=== PATIENT | female | born 1990 | race Caucasian/White ===

== ENCOUNTER 2016-10-03 10:04 | Emergency (ER) | payer MEDICAID, OTHER ==
--- NOTE | 2016-10-03 12:29 | ED Physician Documentation ---
PD HPI LOWER EXT INJURY - Stated complaint Stated Complaint: FT PX - Chief complaint Chief Complaint: Ext Problem - History obtained from History obtained from: Patient - History of Present Illness PD HPI LOW EXT INJURY LOCATION: Right, Toe (base of great toe) Type of injury: No: Fall, Twist Timing - onset: Today (awoke with marked pain in great toe MTP. No noted injury. No prior similar. Was feeling otherwise okay.) Improved by: No: Rest Worsened by: Moving, Palpating Associated symptoms: Swelling (at MTP), Discolored (mildly red). No: Weakness, Numbness Similar symptoms before: Has not had sx before Recently seen: Not recently seen Review of Systems Constitutional: denies: Fever, Chills Skin: denies: Abrasion (s), Laceration (s) Musculoskeletal: denies: Back pain Neurologic: denies: Focal weakness, Numbness PD PAST MEDICAL HISTORY - Past Medical History Past Medical History: Yes Neuro: Head injury Musculoskeletal: None - Past Surgical History Past Surgical History: Yes HEENT: Myringotomy (tubes) - Present Medications Home Medications: Ambulatory Orders Medication Instructions Recorded Confirmed Methocarbamol [Robaxin] 500 mg PO Q6H PRN #25 tablet 02/04/16 10/03/16 Dexamethasone [Decadron] 4 mg PO DAILY #5 tablet 10/03/16 Tramadol HCl 50 mg PO Q6H PRN #20 tablet 10/03/16 - Allergies Allergies/Adverse Reactions: Allergies Allergy/AdvReac Type Severity Reaction Status Date / Time hydrocodone bitartrate * AdvReac Intermediate gi problems Verified 10/03/16 11: 20 [From Vicodin] oxycodone HCl * AdvReac Intermediate gi problems Verified 10/03/16 11:20 [From Percocet] - Social History Does the pt smoke?: Yes Smoking Status: Current every day smoker Does the pt drink ETOH?: No Does the pt have substance abuse?: No - Immunizations Immunizations are current?: Yes - POLST Patient has POLST: No PD ED PE NORMAL - Vitals Vital signs reviewed: Yes - General General: Alert and oriented X 3, Well developed/nourished - Neck Neck: Supple, no meningeal sign, No adenopathy Results - Vitals Vitals: Vital Signs - 24 hr 10/03/16 10/03/16 10:08 13:09 Temperature 36.4 C L 36.6 C Heart Rate 85 69 Respiratory 18 16 Rate Blood Pressure 124/70 125/60 O2 Saturation 98 98 Oxygen O2 Source Room air PD MEDICAL DECISION MAKING - ED course Complexity details: considered differential (she is young but the location and degree of tenderness would suggest gout. Could be tendonitis. Does not look infectious. ), d/w patient Departure - Departure Disposition: 01 Home, Self Care Clinical Impression: Tendinitis of toe Toe pain Qualifiers: Laterality: right Qualified Code(s): M79.674 - Pain in right toe(s) Condition: Stable Record reviewed to determine appropriate education?: Yes Instructions: Tendonitis Foot Tx, ED Arthritis Gout Prescriptions: Dexamethasone [Decadron] 4 mg PO DAILY #5 tablet Tramadol HCl 50 mg PO Q6H PRN #20 tablet PRN Reason: Pain Comments: Presume some tendon inflammation at the toe, though gout could also fit for the symptoms. These would be treated similarly with anti-inflammatories and some pain meds. Ibuprofen 600-800 mg three times daily and/or could use steroid Decadron daily for 5 days. For pain, use Tylenol 650 mg 4 times daily and add Tramadol 4 times daily as needed. Recheck if not improved over the next 3-5 days. Activity as able. Discharge Date/Time: 10/03/16 13:09
[2016-10-03] MEDS ORDERED: ACETAMINOPHEN 325 MG TABLET PO STA (12:55)
[2016-10-03] MEDS ORDERED: DEXAMETHASONE 10 MG/ML VIAL PO STA (12:55)
[2016-10-03] MEDS ORDERED: DEXAMETHASONE 10 MG/ML VIAL ONE (12:57)
[2016-10-03] MEDS ORDERED: CHERRY SYRUP 10 ML UDC PO ONE (12:57)
[2016-10-03] MEDS ORDERED: ACETAMINOPHEN 325 MG TABLET PO ONE (12:57)
[2016-10-03 13:10] VITALS: BP 125/60
== END 2016-10-03 13:09 | disposition home or self-care (01) ==
LOC: ED 10:04
DX: M79.674 Pain in right toe(s) (principal); X50.9XXA Other and unspecified overexertion or strenuous movements or postures, initial encounter; F17.200 Nicotine dependence, unspecified, uncomplicated
CPT/HCPCS: 99283; A9270